=== PATIENT | male | born 2000 | race Two or more races ===

== ENCOUNTER → 2020-12-09 | Outpatient (CLI) | payer SELFPAY | LOC: M LABSMTC 11:28 | PROVIDERS: ATTEND Pediatrics | DX: Z20.822 Contact with and (suspected) exposure to COVID-19 (principal) ==

== ENCOUNTER 2022-08-10 18:28 | Emergency (ER) | payer OTHER ==
[~2022-08-10] VITALS: Ht 177.8 cm; Wt 63.6 kg
[~2022-08-10 18:28] MED LIST: ONDA4TAB6 PO; VANC125C3 PO
[2022-08-10 23:00] VITALS: BP 132/74
== END 2022-08-10 23:01 | disposition home or self-care (01) ==
LOC: EDBD 18:28 → M ED 18:28
DX: S89.91XA Unspecified injury of right lower leg, initial encounter (principal); W17.89XA Other fall from one level to another, initial encounter; Y99.1 Military activity; F17.200 Nicotine dependence, unspecified, uncomplicated

== ENCOUNTER 2023-03-12 14:46 | Emergency (ER) | payer OTHER ==
[~2023-03-12] VITALS: Ht 180.3 cm; Wt 68.8 kg
[2023-03-12] MEDS ORDERED: DOXY-444 PO (14:53)
[2023-03-12] MEDS ORDERED: LIDOCAINE 1% MDV 20ML VIAL SC ONE (18:25)
[2023-03-12] MEDS ORDERED: CEPHALEXIN 500 MG CAP PO ONE (18:40)
[2023-03-12] MEDS ORDERED: CEPH500C PO (18:40)
[2023-03-12 18:45] VITALS: BP 124/65
== END 2023-03-12 18:47 | disposition home or self-care (01) ==
LOC: M ED 14:46
DX: S61.211A Laceration without foreign body of left index finger without damage to nail, initial encounter (principal); W26.8XXD Contact with other sharp object(s), not elsewhere classified, subsequent encounter; Y99.0 Civilian activity done for income or pay; Z79.899 Other long term (current) drug therapy